=== PATIENT | female | born 1945 | race Caucasian/White ===

== ENCOUNTER 2025-08-23 08:00 | Outpatient (RCR) | payer MEDICARE, SELFPAY ==
[2025-05-17 14:18] VITALS: BP 121/81; PULSE 63; RESP 16; O2SAT 99; BMI 29.4
== END 2025-08-23 13:46 | disposition home or self-care (01) ==
PROVIDERS: PCP Physician Assistant; Visit Provider Internal Medicine Cardiovascular Disease
DX: Z95.2 Presence of prosthetic heart valve (principal)
CPT/HCPCS: 93798